=== PATIENT | male | born 1970 | race Caucasian/White ===

== ENCOUNTER 2023-10-18 09:58 | Outpatient (CLI) | payer OTHER, SELFPAY ==
--- OUTSIDE RECORDS SUMMARY | 2023-10-18 10:01 | XMS_ITS | Clinical Summary ---
Author Name Unknown Organization [facility] Address [address] [place] [address] Care Team Providers Care Voltage Inspector Name Role Phone Elsewhere, Pcp Primary Care Provider Unavailabl e Source Comments Patient records contain information from all sites at [facility]. For routine questions regarding patient records, call [phone] during business hours, M-F 8:00 AM - 5:00 PM Central Time. Record requests for emergency care only can be directed to [phone] at any time.[facility] Allergies No known active allergies Medications Medication Sig Dispensed Refills Start Date End Date Status allopurinoL (ZYLOPRIM) 300 mg tablet Take 300 mg by mouth every morning. 0 02/24/2020 Active aMILoride-hydroCHLOR Othiazide (MODURETIC) 5-50 mg per tablet Take 1 tablet by mouth every morning. 0 02/24/2020 Active propranoloL (INDERAL) 10 mg tablet Take 10-20 mg by mouth. 0 04/07/2015 Active sildenafil (REVATIO) 20 mg tablet sildenafil (pulmonary hypertension) 20 mg tablet Take 3-5 tablets by mouth an hour before sexual activity 0 09/02/2017 Active azithromycin (ZITHROMAX) 250 mg tablet Take 500 mg (2 tablets) by mouth the first day then 250 mg (1 tablet) by mouth for 4 more days. 6 tablet 0 07/10/2023 Active Social History Tobacco Use Types Packs/Day Years Used Date Smoking Tobacco: Never Smokeless Tobacco: Never Nutrition Answer Date Recorded Nutrition: EVOO Fat Source Unknown 09/06 Nutrition: Servings of Fruits/Vegetables per Day Not on file 09/06/2020 Dental Answer Date Recorded Dental: Regular Dentist Unknown 09/07/19 21 Sex and Gender Information Value Date Recorded Sex Assigned at Not on file Gender Identity Not on file Sexual Orientation Not on file Last Filed Vital Signs Vital Sign Reading Time Taken Comments Blood Pressure 142/87 07/10/2023 3:11 PM SCRAP SAWYER Pulse 76 07/10/2023 3:08 PM SCRAP SAWYER Temperature 36.1 ??C (97 ??F) 07/10/2023 3:08 PM SCRAP SAWYER Respiratory Rate 16 07/10/2023 3:08 PM SCRAP SAWYER Oxygen Saturation 98% 07/10/2023 3:08 PM SCRAP SAWYER Inhaled Oxygen Concentration - - Weight 110 kg (242 lb 15.2 oz) 07/10/2023 3:08 P M SCRAP SAWYER Height - - Body Mass Index - - Plan of Treatment Health Maintenance Due Date Last Done Comments CT Colonography 1968 Cologuard 1968 FIT 1968 Fasting Glucose for Diabetes Screening 1968 HIV Screening 1968 Hepatitis C Screening 1968 Lipid (Cholesterol) Screening 1968 Hepatitis B Vaccines (1 of 3 - 19+ 3-dose series) 01/24/1987 COVID-19 Vaccine ( season) 2023 06/04/2022, 11/29/2021, 06/06/2021, Additional history exists Influenza Vaccine (#1) 2023 , 04/16/2019, 05/09/2018, Additional history exists Depression Screening (Annual PHQ-2) 07/09/2023 DTaP,Tdap,and Td Vaccines (2 - Td or Tdap) 11/04/2023 11/03/2013 Colonoscopy 04/20/2031 04/20/2021 Colorectal Cancer Screening 04/20/2031 Zoster Vaccines Completed 01/22/2019, 10/10/2018 Pneumococcal vaccine (0-64 years) Aged Out No longer eligible based on patient's age to complete this topic Care Teams Voltage Inspector Relationship Specialty Start Date End Date Elsewhere, Pcp PCP - General Internal Medicine 07/10/23
--- OUTSIDE RECORDS SUMMARY | 2023-10-18 10:01 | XMS_ITS ---
Author Name Unknown Organization [facility] Address [address] [place] [address] Care Team Providers Care Home Care Specialist Name Role Phone Unavailable Unavailable Unavailable Surgery Details Not on file Complications Check Surgery Details section. Procedure Estimated Blood Loss Check Surgery Details section. Procedure Findings Check Surgery Details section. Procedure Specimens Taken Check Surgery Details section.
--- OUTSIDE RECORDS SUMMARY | 2023-10-18 10:01 | XMS_ITS | Encounter Summary ---
Author Name Unknown Organization [facility] Address [address] [place] [address] Care Team Providers Care Environmental Studies Program Director Name Role Phone Elsewhere, Pcp Primary Care Provider Unavailabl e Reason for Visit * Reason Comments Cough Productive x 2 weeks Earache X 2 weeks right ear feels like fluid/plugged Encounter Details Date Type Department Care Team (Late st Contact Info) Description 07/10/2023 3:30 PM STAFF AIR TACTICAL OFFICER Office Visit Department of Family Medicine, [facility], in [place], [place] [address] [address] Augusto Lambert M.D. [address] [address] Cough Unspecified Type (Primary Dx) Social History Tobacco Use Types Packs/Day Years [...] on file Sexual Orientation Not on file documented as of this encounter Last Filed Vital Signs Vital Sign Reading Time Taken Comments Blood Pressure 142/87 07/10/2023 3:11 PM STAFF AIR TACTICAL OFFICER Pulse 76 07/10/2023 3:08 PM STAFF AIR TACTICAL OFFICER Temperature 36.1 ??C (97 ??F) 07/10/2023 3:08 PM STAFF AIR TACTICAL OFFICER Respiratory Rate 16 07/10/2023 3:08 PM STAFF AIR TACTICAL OFFICER Oxygen Saturation 98% 07/10/2023 3:08 PM STAFF AIR TACTICAL OFFICER Inhaled Oxygen Concentration - - Weight 110 kg (242 lb 15.2 oz) 07/10/2023 3:08 P M STAFF AIR TACTICAL OFFICER Height - - Body Mass Index - - documented in this encounter Progress Notes * Augusto Lambert M.D. - 07/10/2023 3:30 PM CST SUBJECTIVE CHIEF COMPLAINT/REASON FOR VISIT Fabio Mosqueda is a 53 y.o. male that presents with congestion, persisting for 2 weeks with nasal drainage and productive cough. Ears, right mostly, have also felt plugged over the same time period, and he wonders if this is wax related. CURRENT MEDICATIONS Current Outpatient Medications: allopurinoL (ZYLOPRIM) 300 mg tablet, Take 300 mg by mouth every morning., Disp: , Rfl: aMILoride-hydroCHLOROthiazide (MODURETIC) 5-50 mg per tablet, Take 1 tablet by mouth every morning., Disp: , Rfl: propranoloL (INDERAL) 10 mg tablet, Take 10-20 mg by mouth., Disp: , Rfl: sildenafil (REVATIO) 20 mg tablet, sildenafil (pulmonary hypertension) 20 mg tablet Take 3-5 tablets by mouth an hour before sexual activity, Disp: , Rfl: azithromycin (ZITHROMAX) 250 mg tablet, Take 500 mg (2 tablets) by mouth the first day then 250 mg (1 tablet) by mouth for 4 more days., Disp: 6 tablet, Rfl: 0 ALLERGIES/CONTRAINDICATIONS No Known Allergies OBJECTIVE Vitals: 07/10/23 1511 BP: 142/87 Pulse: Resp: Temp: SpO2: PHYSICAL EXAMINATION General Appearance: No acute distress. HEENT: Oropharynx with clear/yellow drainage. Ears with TM bulging bilaterally but no discolorationor loss of landmarks. Minimal cerumen noted on either side. Neck negative for masses or nodes of significance. Chest: Lungs clear. No accessory muscle use. Occasional dry cough noted. ASSESSMENT / PLAN Prolonged congestion and URI symptoms as above. He has been using cough medications that may contain decongestants, and we discussed rebound which can arise from prolonged use of these medications. Conservative measures are reviewed. Consider trial of zithromax if not improving over the next few days. All questions are discussed and answered. Patient voices good understanding and agreement with our plan. Follow-up with primary care if not improving as expected or otherwise as needed. F AIR TACTICAL OFFICER documented in this encounter Plan of Treatment Not on file documented as of this encounter Visit Diagnoses Diagnosis Cough Unspecified Type- Primary documented in this encounter Care Teams Environmental Studies Program Director Relationship Specialty Start Date End Date Elsewhere, Pcp PCP - General Internal Medicine 07/10/23 documented as of this encounter
--- OUTSIDE RECORDS SUMMARY | 2023-10-18 10:01 | XMS_ITS | Referral Summary ---
Author Name Unknown Organization [facility] Address [address] [place] [address] Care Team Providers Care Senior Clinical Project Manager Name Role Phone Elsewhere, Pcp Primary Care Provider Unavailabl e Source Comments Patient records contain information from all sites at [facility]. For routine questions regarding patient records, call [phone] during business hours, M-F 8:00 AM - 5:00 PM Central Time. Record requests for emergency care only can be directed to [phone] at any time.[facility] Allergies No known active allergies Medications Medication [...] Comments Blood Pressure 142/87 07/10/2023 3:11 PM HAND TRIMMER Pulse 76 07/10/2023 3:08 PM HAND TRIMMER Temperature 36.1 ??C (97 ??F) 07/10/2023 3:08 PM HAND TRIMMER Respiratory Rate 16 07/10/2023 3:08 PM HAND TRIMMER Oxygen Saturation 98% 07/10/2023 3:08 PM HAND TRIMMER Inhaled Oxygen Concentration - - Weight 110 kg (242 lb 15.2 oz) 07/10/2023 3:08 P M HAND TRIMMER Height - - Body Mass Index - - Plan of Treatment Not on file Care Teams Senior Clinical Project Manager Relationship Specialty Start Date End Date Elsewhere, Pcp PCP - General Internal Medicine 07/10/23
--- OUTSIDE RECORDS SUMMARY | 2023-10-18 10:02 | XMS_ITS | Referral Summary ---
Author Name Unknown Organization [facility] Address [address] [place] [address] Care Team Providers Care Campaign Advisor Name Role Phone No Ref-Primary, Physician Primary Care Provider Silvina Herndon MD Unavailable [phone] Allergies No known active allergies Medications Medication Sig Dispensed Refills Start Date End Date Status allopurinol (ZYLOPRIM) 300 MG tablet allopurinol 300 mg tablet TAKE 1 TABLET DAILY Active propranolol (INDERAL) 10 MG tabletIndications: Situational anxiety Take 1-2 tablets (10-20 mg) by mouth once as needed (30 min before public speaking) 30 tablet 11 08/25/2022 Active omeprazole (PRILOSEC) [address] capsuleIndications :Throat clearing Take 1 capsule (40 mg) by mouth daily 60 capsule 08/25/2022 Active Social History Tobacco Use Types Packs/Day Years Used Date Smoking Tobacco: Never Passive Smoke Exposure: Never Smokeless Tobacco: Never Tobacco Cessation:Counseling Given: Not Answered PHQ-2 Answer Date Recorded PHQ-2 Score 3 08/25/2022 Adolescent Education Answer Date Record ed Getting School Help Needed Not on file 03/30 Sex and Gender Information Value Date Recorded Sex Assigned at Not on file Gender Identity Not on file Sexual Orientation Not on file Last Filed Vital Signs Vital Sign Reading Time Taken Comments Blood Pressure 126/70 08/25/2022 1:48 PM ENGLISH COMPOSITION INSTRUCTOR Pulse 81 08/25/2022 1:48 PM ENGLISH COMPOSITION INSTRUCTOR Temperature 36.4 ??C (97.6 ??F) 08/25/2022 1:48 PM CS T Respiratory Rate 18 08/25/2022 1:48 PM ENGLISH COMPOSITION INSTRUCTOR Oxygen Saturation 98% 08/25/2022 1:48 PM ENGLISH COMPOSITION INSTRUCTOR Inhaled Oxygen Concentration - - Weight 107 kg (236 lb) 08/25/2022 1:48 PM ENGLISH COMPOSITION INSTRUCTOR Height 180.3 cm (5' 11) 06/20/2016 11:26 PM ENGLISH COMPOSITION INSTRUCTOR Body Mass Index 32.92 06/20/2016 11:26 PM ENGLISH COMPOSITION INSTRUCTOR Plan of Treatment Not on file Procedures Procedure Name Priority Date/Time Associated Diagnosis Comments BASIC METABOLIC PANEL STAT 06/20/2016 11:37 PM ENGLISH COMPOSITION INSTRUCTOR from Last 3 Months or Most Recently Relevant to Health Maintenance Results * (ABNORMAL) Basic metabolic panel (06/20/2016 11:37 PM ENGLISH COMPOSITION INSTRUCTOR) Sodium 138 133 - 144 mmol/L [facility] Potassium 3.9 3.4 - 5.3 mmol/L [facility] Chloride 105 94 - 109 mmol/L [facility] Carbon Dioxide 28 20 - 32 mmol/L [facility] Anion Gap 5 3 - 14 mmol/L [facility] Glucose 103(H) 70 - 99 mg/dL [facility] Urea Nitrogen 14 7 - 30 mg/dL [facility] Creatinine 1.17 0.66 - 1.25 mg/dL [facility] GFR Estimate 66 >60 mL/min/1.7 m2 [facility] Comment:Non GFR Calc GFR Estimate If Black 80 >60 mL/min/1.7 m2 [facility] Comment: GFR Calc Calcium 8.6 8.5 - 10.1 mg/dL [facility] Blood specimen (specimen) 06/20/2016 11:37 PM ENGLISH COMPOSITION INSTRUCTOR 06/20/2016 11:56 PM ENGLISH COMPOSITION INSTRUCTOR Alyce Villegas MD LAB - BLOOD ORDERABL ES [facility] [address] [place] [address], [facility] [phone] from Last 3 Months or Most Recently Relevant to Health Maintenance Care Teams Campaign Advisor Relationship Specialty Start Date End Date No Ref-Primary, Physician PCP - General 06/21/16 Silvina Herndon MD [address] [facility] [place] [id number] Assigned PCP 08/02/22
--- OUTSIDE RECORDS SUMMARY | 2023-10-18 10:02 | XMS_ITS | Encounter Summary ---
Author Name Unknown Organization [facility] Address [address] [place] [address] Care Team Providers Care Sapphire Stylus Grinder Name Role Phone No Ref-Primary, Physician Primary Care Provider Silvina Herndon MD Unavailable [phone] Encounter Details Date Type Department Care Team (Late st Contact Info) Description 07/21/2021 Orders Only [facility] Centralized Scheduling [address] [place] [address] Oscar Greenfield MD [address] [place] [address] Suspected COVID-19 virus infection Social History Tobacco Use Types Packs/Day Years Used Date Smoking Tobacco: Never Assessed Sex and Gender Information Value Date Recorded Sex Assigned at Not on file Gender Identity Not on file Sexual Orientation Not on file documented as of this encounter Plan of Treatment Not on file documented as of this encounter Visit Diagnoses Diagnosis Suspected COVID-19 virus infection documented in this encounter Care Teams Sapphire Stylus Grinder Relationship Specialty Start Date End Date No Ref-Primary, Physician PCP - General 06/21/16 Silvina Herndon MD [address] [place] [address] [place] [id number] Assigned PCP 08/02/22 documented as of this encounter
--- OUTSIDE RECORDS SUMMARY | 2023-10-18 10:02 | XMS_ITS | Clinical Summary ---
Author Name Unknown Organization [facility] Address [address] [place] [address] Care Team Providers Care Rn Acute Care Name Role Phone No Ref-Primary, Physician Primary Care Provider Silvina Herndon MD Unavailable [phone] Allergies No known active allergies Medications Medication [...] Comments Blood Pressure 126/70 08/25/2022 1:48 PM PETROPHYSICAL ENGINEER Pulse 81 08/25/2022 1:48 PM PETROPHYSICAL ENGINEER Temperature 36.4 ??C (97.6 ??F) 08/25/2022 1:48 PM CS T Respiratory Rate 18 08/25/2022 1:48 PM PETROPHYSICAL ENGINEER Oxygen Saturation 98% 08/25/2022 1:48 PM PETROPHYSICAL ENGINEER Inhaled Oxygen Concentration - - Weight 107 kg (236 lb) 08/25/2022 1:48 PM PETROPHYSICAL ENGINEER Height 180.3 cm (5' 11) 06/20/2016 11:26 PM PETROPHYSICAL ENGINEER Body Mass Index 32.92 06/20/2016 11:26 PM PETROPHYSICAL ENGINEER Plan of Treatment Health Maintenance Due Date Last Done Comments ADVANCE CARE PLANNING 1968 ANNUAL REVIEW OF HM ORDERS 1968 CT COLONOGRAPHY 1968 FIT 1968 FLEX SIG 1968 YEARLY PREVENTIVE VISIT 1968 sDNA (Cologuard) 1968 COLONOSCOPY 01/24/1978 COLORECTAL CANCER SCREENING 01/24/1978 HIV SCREENING 01/24/1983 HEPATITIS C SCREENING 01/24/1986 HEPATITIS B IMMUNIZATION (1 of 3 - 19+ 3-dose series) 01/24/1987 LIPID 2008 GLUCOSE 06/20/2019 06/20/2016 COVID-19 Vaccine ( season) 2023 06/04/2022, 11/29/2021, 06/06/2021, Additional history exists INFLUENZA VACCINE (#1) 2023 , 04/16/2019, 05/09/2018, Additional history exists PHQ-2 (once per calendar year) 2023 08/25/2022, 08/25/2022 DTAP/TDAP/TD IMMUNIZATION (2 - Td or Tdap) 11/04/2023 11/03/2013 ZOSTER IMMUNIZATION Completed 01/22/2019, 9 HPV IMMUNIZATION Aged Out No longer e ligible based on patient's age to complete this topic IPV IMMUNIZATION Aged Out No longer e ligible based on patient's age to complete this topic MENINGITIS IMMUNIZATION Aged Out No l onger eligible based on patient's age to complete this topic Pneumococcal Vaccine: Pediatrics (0 to 5 Years) and At-Risk Patients (6 to 64 Years) Aged Out No longer eligible based on patient's age to complete this topic RSV MONOCLONAL ANTIBODY Aged Out No l onger eligible based on patient's age to complete this topic Procedures Procedure Name Priority Date/Time Associated Diagnosis Comments BASIC METABOLIC PANEL STAT 06/20/2016 11:37 PM PETROPHYSICAL ENGINEER from Last 3 Months or Most Recently Relevant to Health Maintenance Results * (ABNORMAL) Basic metabolic panel (06/20/2016 11:37 PM PETROPHYSICAL ENGINEER) Sodium 138 133 - 144 mmol/L [facility] Potassium 3.9 3.4 - 5.3 mmol/L [facility] Chloride 105 94 - 109 mmol/L [facility] Carbon Dioxide 28 20 - 32 mmol/L [facility] Anion Gap 5 3 - 14 mmol/L [facility] Glucose 103(H) 70 - 99 mg/dL [facility] Urea Nitrogen 14 7 - 30 mg/dL [facility] Creatinine 1.17 0.66 - 1.25 mg/dL [facility] GFR Estimate 66 >60 mL/min/1.7 m2 [facility] Comment:Non GFR Calc GFR Estimate If Black 80 >60 mL/min/1.7 m2 [facility] Comment: GFR Calc Calcium 8.6 8.5 - 10.1 mg/dL [facility] Blood specimen (specimen) 06/20/2016 11:37 PM PETROPHYSICAL ENGINEER 06/20/2016 11:56 PM PETROPHYSICAL ENGINEER Alyce Villegas MD LAB - BLOOD ORDERABL ES [facility] [address] [place] [address], [facility] [phone] from Last 3 Months or Most Recently Relevant to Health Maintenance Care Teams Rn Acute Care Relationship Specialty Start Date End Date No Ref-Primary, Physician PCP - General 06/21/16 Silvina Herndon MD [address] [facility] [address] [place], [place] [address] Assigned PCP 08/02/22
--- OUTSIDE RECORDS SUMMARY | 2023-10-18 10:02 | XMS_ITS | Clinical Summary ---
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 30 tablet 1 04/07/2015 Active sildenafil, antihypertensive, (REVATIO) 20 mg tabletIndications:Ere ctile dysfunction due to arterial insufficiency TAKE 3-5 TABLETS BY MOUTH ONE HOUR PRIOR TO SEXUAL ACTIVITY 30 tablet 10 09/02/2017 Active sildenafil, antihypertensive, (REVATIO) 20 mg tabletIndications:Ere ctile dysfunction due to arterial insufficiency SILDENAFIL 20 MG GENERIC. Take 3-5 tablets one hour prior to sexual activity 50 tablet 11 05/02/2018 Active Active Problems Problem Noted Date Diagnosed Date Right hamstring muscle strain 01/29/2013 Performance anxiety 09/10/2012 Resolved Problems Problem Noted Date Diagnosed Date Resolved Date Social anxiety disorder 04/11/2012 03/0 11/2012 Immunizations Name Administration Dates Next Due AMB Influenza, IIV3 (Age >=3 years)(Flu [facility]) 04/21/2011 Influenza A (H1N1), Inactivated 07/26/2009 Influenza A (H1N1), Inactivated (Age >=3 Years) 07/26/2009 Influenza, IIV3 (Age 6-35 mos) 04/21/2011,2009 Influenza, IIV3 (Age >=3 years) 07/26/2009 Influenza, IIV4 05/09/2018,06/14/2016 Tdap 11/03/2013 Family History Medical History Relation Name Comments Good Health Daughter 2 Good Health Father Good Health Mother Cancer-colon Neg. 1 Cancer-prostate Neg. 2 Heart Disease Neg. 3 Cancer-ovarian Neg. 4 Diabetes Neg. 4 Good Health Sister 2 Good Health Son 2 Relation Name Status Comments Daughter 1 Alive Daughter 2 Father Alive Mother Alive Neg. 1 Neg. 2 Neg. 3 Neg. 4 Sister 1 Alive Sister 2 Son 1 Alive Son 2 Social History Tobacco Use Types Packs/Day Years Used Date Smoking Tobacco: Never Smokeless Tobacco: Never Tobacco Cessation:Counseling Given: Yes Alcohol Use Standard Drinks/Week Comments Yes 7 (1 standard drink = 0.6 oz pur e alcohol) Infrequent PHQ-2 Answer Date Recorded PHQ-2 Score 0 09/07/2018 Social Connections Answer Date Recorded Frequency of Communication with Friends and Fami ly Not on file 07/09/2021 Financial Resource Strain Answer Date R ecorded Difficulty of Paying Living Expenses Not on file 07/09/2021 Difficulty of Paying Living Expenses Not on file 07/09/2021 Sex and Gender Information Value Date Recorded Sex Assigned at Not on file Gender Identity Not on file Sexual Orientation Not on file Obstetrics History Last Filed Vital Signs Vital Sign Reading Time Taken Comments Blood Pressure 124/87 05/09/2018 8:23 AM CDT Pulse 68 05/09/2018 8:20 AM CDT Temperature 36.9 ??C (98.5 ??F) 05/09/2018 8:20 AM CD T Respiratory Rate 16 06/14/2016 2:16 PM [employer] Oxygen Saturation 97% 05/09/2018 8:20 AM CDT Inhaled Oxygen Concentration - - Weight 101.9 kg (224 lb 9.6 oz) 05/09/2018 8:20 AM CDT Height 176.6 cm (5' 9.53) 05/09/2018 8:20 AM CD T Body Mass Index 32.67 05/09/2018 8:20 AM CDT Plan of Treatment Health Maintenance Due Date Last Done Comments HIV for age 15-65 01/24/1983 Hepatitis C screening for age 18-79 01/24/1986 Lipids for age 45-75 09/10/2017 09/10/2012, 08/16/19 12 Zoster (shingles) series for age 50+ (1 of 2) 01/24/2018 BMI (ht and wt on same day) for age 18+ 05/09/2019 05/09/2018, 10/11/2017, 06/22/2016, Additional history exists Depression screening for age 12+ 05/09/2019 05/09/2018, 06/07/2016, 06/07/2016 COVID-19 vaccine series (2022- season) 2023 11/09/2020, 10/19/2020 Tetanus booster 11/04/2023 11/03/2013 Influenza for age 50-64 03/09/2024 05/09/20 18, 06/14/2016, 04/21/2011, Additional history exists Colonoscopy through age 75 04/20/2031 04/20/2021, Tdap Completed 11/03/2013 Pneumococcal series for age 6-64 Aged Out No longer eligible based on patient's age to complete this topic Procedures Procedure Name Priority Date/Time Associated Diagnosis Comments COLONOSCOPY 04/20/2021 7:38 AM CDT LIPID PANEL W REFLEX MEASURED LDL Routine 09/10/2012 9:22 AM [employer] Lipid screening from Last 3 Months or Most Recently Relevant to Health Maintenance Results * COLONOSCOPY (04/20/2021 7:38 AM CDT) 04/20/2021 7:38 AM CDT Narrative Transcriptions Benja Lake MD - 04/20/2021 9:01 AM CDT Patient Name: Fabio Mosqueda Procedure Date: 04/20/2021 Gender: Male Date of : 1970 Admit Type: Outpatient Procedure: Colonoscopy Proceduralist: Benja Lake MD , Michelle Dao RN(Nurse) Indications/Pre-Op Diagnosis: Screening for colorectal malignant neoplasm, This is the patient's first colonoscopy Medications: Fentanyl 100 micrograms IV, Midazolam 4 mgIV, The level of sedation administered wasmoderate Procedure Description: The patient had risks, benefits and alternatives explained to andgave informed consent. The patient had a stable cardiopulmonary status and judged an adequate candidate for conscious sedation. The [id number] was passed through the anus and advanced tothe cecum, identified by appendiceal orifice and ileocecal valve. The colonoscopy was performed without difficulty. The patient toleratedthe procedure well. The quality of the bowel preparation was good. The ileocecal valve, appendiceal orifice, and rectum were photographed. Complications: No immediate complications. Estimated Blood Loss & Specimen: Estimated blood loss: none. Specimen collected - None Findings: The perianal and digital rectal examinations were normal. The entire examined colon appeared normal on direct and retroflexion views. Impressions/Post-Op Diagnosis: - The entire examined colon is normal on direct and retroflexionviews. - No specimens collected. Recommendation: - Patient has a contact number available for emergencies. The signsand symptoms of potential delayed complications were discussed with the patient. Return to normal activities tomorrow. Written discharge instructions were provided to the patient. - Resume previous diet. - Continue present medications. - Repeat colonoscopy in 10 years for screening purposes. Moderate Sedation: Moderate (conscious) sedation was administered by the endoscopy nurse and supervised by the endoscopist. The following parameters were monitored: oxygen saturation, heart rate, respiratory rate, blood pressure, adequacy of pulmonary ventilation and reponse to care. Please refer to the patient's medical record flowsheets and nursing notes for moderate sedation details. Total physician intraservice time was 12 minutes. Benja Lake MD 04/20/2021 9:01:07 AM This report has been signed electronically. Note Initiated On: 04/20/2021 7:38 AM Procedure Code(s): --- Professional --- 99677, Colonoscopy, flexible; diagnostic, including collection of specimen(s) bybrushing or washing, when performed (separateprocedure) Diagnosis Code(s): --- Professional --- Z12.11, Encounter for screening formalignant neoplasm of colon CPT copyright 2020 [employer]. All rights reserved. The codes documented in this report are preliminary and upon leverman reviewmay be revised to meet current compliance requirements. Scope In: 8:48:18 AM Scope Withdrawal Time 0 hours 7 minutes 28 seconds Scope Out: 8:58:03 AM Benja Lake MD PROCEDURE ORD * (ABNORMAL) LIPID PANEL W REFLEX MEASURED LDL (09/10/2012 9:22 AM [employer]) CHOLESTEROL,TOTAL 173 100 - 199 mg/dL 09/10/2012 9:57 AM [facility] TRIGLYCERIDES 81 <150 mg/dL 09/10/2012 9:57 AM [facility] HDL CHOLESTEROL 39(L) >40 mg/dL 3 9:57 AM [facility] NON-HDL CHOLESTEROL 134 <145 mg/dl 09/10/2012 9:57 AM [facility] CHOL/HDL RATIO 4.44 <4.50 09/10/2012 9:57 AM [facility] LDL CHOLESTEROL 118 <=130 mg/dL 09/10/2012 9:57 AM [facility] PATIENT STATUS FASTING 09/10/2012 9:57 AM [facility] Blood specimen (specimen) BLOOD SPECIMEN / Unknown 09/10/2012 9:22 AM [employer] 09/10/2012 9:22 AM [employer] Kg Escalona MD CHEMISTRY [facility] [address] [place] [address] from Last 3 Months or Most Recently Relevant to Health Maintenance 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 PCP - General 06/14/16
--- NOTE | 2023-10-18 10:15 | FL_ITS ---
Patient: BRINA ASHER Facility:?[facility] Patient ID:?[id number] Site Patient ID:?[id number]. Site :?1970 Study:?XRay-Abdomen Esophagus w/air to Read-10/18/2023 10:45:23 AM Ordering Physician:VICKIE Final Report: Technique: Double-contrast esophagram performed after the uneventful administration of effervescent crystals and thick barium followed by thin barium. Fluoroscopy time 1 minute 3 seconds. Indication: Dysphagia Comparison: None. Findings: Esophagus: Normal morphology. Decreased motility in the prone position. No stricture or mass. Gastroesophageal reflux: None. Impression: Mild decreased esophageal motility. The remainder of the examination is normal. No reflux or hernia. No spasm. Dictated by Arnaldo Carrillo MD @ 10/18/2023 11:23:47 AM Signed by:?Arnaldo Carrillo MD @10/18/2023 11:23:47 AM (Electronic Signature)
--- NOTE | 2023-10-18 11:00 | CT_ITS ---
Patient: BRINA ASHER Facility:?[facility] Patient ID:?[id number] Site Patient ID:?[id number]. Site :?1970 Study:?CT-Sinus WITHOUT-10/18/2023 10:42:31 AM Ordering Physician:?DR. FORBES Final Report: Indication: Sinusitis Technique: Performed without IV contrast Comparison: None available Findings: Frontal sinuses: Clear. Ethmoid sinuses: Clear. Maxillary sinuses: Minimal mucosal thickening is present within the inferior right maxillary sinus. The left maxillary sinus is clear. The maxillary sinus drainage pathways are patent on both sides. Sphenoid sinuses: Clear, including both sphenoethmoidal recesses. Nasal Cavity: Nasal septum is midline. Small nany bullosa in both middle turbinates. No polyps. No TMJ abnormalities identified. The visualized portions of the orbits, intracranial contents and upper soft tissue neck are grossly negative. Impression: 1. Minimal right maxillary sinus disease. 2. Remaining sinuses are clear. Please note that all CT scans at this facility use dose modulation, iterative reconstruction, and/or weight-based dosing when appropriate to reduce radiation dose to as low as reasonably achievable. Dictated by Arnaldo Carrillo MD @ 10/18/2023 1:10:34 PM Signed by:?Arnaldo Carrillo MD @10/18/2023 1:10:34 PM (Electronic Signature)
== END 2023-10-18 09:59 | disposition home or self-care (01) ==
LOC: RAD 10:00
PROVIDERS: Visit Provider Otolaryngology
DX: J32.9 Chronic sinusitis, unspecified (principal); J32.0 Chronic maxillary sinusitis; R13.10 Dysphagia, unspecified
CPT/HCPCS: 70486; 74221